=== PATIENT | female | born 1965 | race Caucasian/White ===

== ENCOUNTER 2016-09-16 00:28 | Inpatient (IN) | payer OTHER ==
[~2016-09-16] VITALS: Ht 167.6 cm; Wt 78.0 kg
[~2016-09-16 00:28] MED LIST: GEOD80CA PO; LEXA20TA PO; LINA290C PO; TOPA100T8 PO; XANA1TAB6 PO
[2016-09-16] MEDS ORDERED: LORazepam 2 MG/ML VIAL IM PRN (02:15)
[2016-09-16] MEDS ORDERED: BENZTROPINE MESYLATE 1 MG TAB PO PRN (02:15)
[2016-09-16] MEDS ORDERED: BENZTROPINE MESYLATE 2 MG/2 ML VIAL IM PRN (02:15)
[2016-09-16] MEDS ORDERED: diphenhydrAMINE HCL 50 MG/ML VIAL - HS PRN IM (02:15)
[2016-09-16] MEDS: ACETAMINOPHEN 325 MG TAB PO PRN ×2 (02:28→11:31)
[2016-09-16] MEDS: LORazepam 1 MG TAB PO PRN ×2 (02:28→09:41)
[2016-09-16 03:23] VITALS: BP 115/72; PULSE 72; RESP 16; TEMP 98.4; O2SAT 100
[2016-09-16] MEDS: diphenhydrAMINE HCL 50 MG CAP - HS PRN PO (05:25)
[2016-09-16 05:56] VITALS: BP_SYST 119; BP_SYST 122; BP_SYST 123; BP_DIAS 54; BP_DIAS 73; BP_DIAS 77; PULSE 101; PULSE 70; PULSE 76; RESP 16; TEMP 97.8; TEMP 98.2; TEMP 99.1; O2SAT 95; O2SAT 97; O2SAT 98
[2016-09-16] MEDS: NICOTINE 21 MG/24 HR PATCH T-DERMAL SCH (09:00)
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
[2016-09-16] MEDS: PANTOPRAZOLE SOD 40 MG DELAYED RELEASE TAB PO SCH (17:26)
[2016-09-16] MEDS: ALPRAZolam 0.5 MG TAB PO SCH (17:26)
[2016-09-16 19:28] VITALS: BP 124/81; PULSE 86; RESP 17; TEMP 98.8
[2016-09-16] MEDS: TOPIRAMATE 25 MG TAB PO SCH (20:43)
[2016-09-17] MEDS: ALPRAZolam 0.5 MG TAB PO SCH ×4 (00:02→20:50)
[2016-09-17] MEDS: SUMAtriptan SUCCINATE 50 MG TAB PO PRN ×2 (05:01→07:28)
[2016-09-17 05:57] VITALS: BP 107/94; PULSE 81; RESP 17; TEMP 97.6; O2SAT 94
[2016-09-17] MEDS: ALUMINUM/MAGNESIUM/SIMETH 30 ML CUP PO PRN (07:29)
[2016-09-17] MEDS: REMOVE OLD NICOTINE PATCH T-DERMAL SCH (09:00)
[2016-09-17] MEDS: NICOTINE 21 MG/24 HR PATCH T-DERMAL SCH (09:00)
[2016-09-17] MEDS: PANTOPRAZOLE SOD 40 MG DELAYED RELEASE TAB PO SCH (09:13)
[2016-09-17] MEDS: POLYETHYLENE GLYCOL 17 GM PKG PO SCH (09:13)
[2016-09-17] MEDS: TOPIRAMATE 25 MG TAB PO SCH ×2 (09:13→20:50)
[2016-09-17] MEDS: ACETAMINOPHEN 325 MG TAB PO PRN (12:02)
[2016-09-17] MEDS: LORazepam 1 MG TAB PO PRN (12:02)
--- NOTE | 2016-09-17 14:17 | EKG ---
Date Performed: 09/17/2016 Time Performed: 13:30:18 PTAGE: 51 years EKG: Sinus rhythm LOW QRS VOLTAGE IN PRECORDIAL LEADS Nonspecific ST and T wave abnormalities BORDERLINE ECG PREVIOUS TRACING : 12/31/2014 13.30 DOCTOR: Tito Young Interpretating Date/Time 09/17/2016 14:16:46
--- NOTE | 2016-09-17 14:48 | PD.CONS ---
Provisional Diagnosis Admission Date Sep 16, 2016 at 01:30 [place] I. Bipolar affective disorder hypomanic state f 31.0 History of Present Illness Service Psychiatry Consult Requested By Attending psychiatrist Reason for Consult Second opinion Marley act Primary Care Physician Unknown HPI Patient is a 51-year-old white female admitted to Dr. simmons service under the Marley act. Dr. umana Hand p draft that was transcribed was reviewed and agreed with. Patient seen by me with nurse in her room continues markedly pressured speech with poor insight somewhat tangential showing no insight into the Marley act process Dr. simmons has signed first opinion petition supporting Marley act. I agree patient meets criteria for involuntary psychiatric hospitalization under Marley act thus I will cosign second opinion petition supporting Marley act Past Family Social History Coded Allergies: No Known Allergies (Unverified , 01/02/15) Reported Medications Linaclotide (Linzess)290 Mcg [id number] Mcg PO DAILY 12/31/14 Escitalopram Oxalate (Lexapro)20 Mg Tab20 Mg PO DAILY 12/31/14 Alprazolam (Xanax 1 mg)Alprazolam 1 mg Tab1 Tab PO TID 12/31/14 Topiramate (Topamax)100 Mg [id number] Mg PO BID 12/31/14 Ziprasidone Hydrochloride (Geodon)80 Mg [id number] Mg PO HS 12/31/14 Current Medications Medications (Trade) Dose Ordered Sig/Tien Route Start Time Stop Time Status Last Admin (Ativan) 1 mg Q6H PRN PO 09/16/16 02:15 09/17/16 12:02 (Ativan Inj) 1 mg Q6H PRN IM 09/16/16 02:15 09/16/16 13:20 (Cogentin) 1 mg Q12H PRN PO 09/16/16 02:15 (Cogentin Inj) 1 mg Q12H PRN IM 09/16/16 02:15 (Benadryl) 50 mg HS PRN PO 09/16/16 02:15 09/16/16 05:25 (Benadryl Inj) 50 mg HS PRN IM 09/16/16 02:15 (Tylenol) 650 mg Q4H PRN PO 09/16/16 02:15 09/17/16 12:02 (Milk Of Magnesia Liq) 30 ml DAILY PRN PO 09/16/16 02:15 (Mag-Al Plus Susp Liq) 30 ml Q6H PRN PO 09/16/16 02:15 09/17/16 07:29 (Habitrol 21 Mg Patch.24 Hr) 1 patch DAILY T-DERMAL 09/16/16 09:00 Miscellaneous Information 1 DAILY T-DERMAL 09/17/16 09:00 (Topamax) 25 mg Q12HR PO 09/16/16 21:00 09/17/16 09:13 (Restoril) 30 mg HS PRN PO 09/16/16 14:00 (Protonix) 40 mg DAILY PO 09/16/16 17:00 09/17/16 09:13 (Miralax) 17 gm DAILY PO 09/17/16 09:00 09/17/16 09:13 (Imitrex) 50 mg DAILY PRN PO 09/16/16 17:15 09/17/16 07:28 (Xanax) 0.5 mg Q6H PO 09/17/16 08:00 09/17/16 13:55 Physical Exam Vital Signs Vital Signs Date Time Temp Pulse Resp B/P Pulse Ox O2 Delivery O2 Flow Rate FiO2 09/17/16 05:57 97.6 81 17 107/94 94 Mental Status Examination Alert somewhat disheveled white female long brown hair sitting in room nurse present throughout session she is calm to somewhat irritable showing little insight into the Marley act process in though I explained to her multiple times especially the 72 hour criteria. Appearance Somewhat disheveled Speech: Pressured, Rapid Orientation: x3 Memory: Unremarkable Thought Process: Linear, Tangential Thought Content: Unremarkable Hallucination Type: None Attention and Concentration: Other (poor) Suicidal Ideation: Yes (overdosed on Geodon) Previous Suicide Attempts: No Homicidal Ideation: No Previous Homicide Attempts: No Insight: Poor Judgement: Poor Affect: Other (slight increase range and intensity) Mood: Irritable, Other (intense) Motor Activity: Normal gait Assessment & Plan Problem List: (1) Bipolar disorder, most recent episode hypomanic ICD Code: F31.0 Assessment & Plan Estimated LOS: days at this time patient does meet Marley criteria I will cosign second opinion petition supporting Marley act Discharge Planning To be determined Alphonse Sharma MD Sep 17, 2016 14:48
[2016-09-17 18:44] VITALS: BP 129/82; PULSE 96; RESP 16; TEMP 98.2; O2SAT 95
[2016-09-18] MEDS: ALPRAZolam 0.5 MG TAB PO SCH ×4 (02:00→21:48)
[2016-09-18 05:48] VITALS: BP 125/72; PULSE 73; RESP 16; TEMP 97.9
[2016-09-18] MEDS: NICOTINE 21 MG/24 HR PATCH T-DERMAL SCH (09:00)
[2016-09-18] MEDS: REMOVE OLD NICOTINE PATCH T-DERMAL SCH (09:00)
[2016-09-18] MEDS: TOPIRAMATE 25 MG TAB PO SCH ×2 (09:39→21:48)
[2016-09-18] MEDS: PANTOPRAZOLE SOD 40 MG DELAYED RELEASE TAB PO SCH (09:39)
[2016-09-18] MEDS: POLYETHYLENE GLYCOL 17 GM PKG PO SCH (09:41)
[2016-09-18 19:32] VITALS: BP 122/96; PULSE 91; RESP 16; TEMP 97.9; O2SAT 98
[2016-09-18] MEDS: ZIPRASIDONE HCL 20 MG CAP PO SCH (21:48)
[2016-09-19] MEDS: ALPRAZolam 0.5 MG TAB PO SCH ×4 (02:00→20:58)
[2016-09-19 05:36] VITALS: BP 105/77; PULSE 83; RESP 16; TEMP 97.6
[2016-09-19] MEDS: REMOVE OLD NICOTINE PATCH T-DERMAL SCH (09:00)
[2016-09-19] MEDS: NICOTINE 21 MG/24 HR PATCH T-DERMAL SCH (09:00)
[2016-09-19] MEDS: POLYETHYLENE GLYCOL 17 GM PKG PO SCH (09:30)
[2016-09-19] MEDS: TOPIRAMATE 25 MG TAB PO SCH ×2 (09:30→20:58)
[2016-09-19] MEDS: PANTOPRAZOLE SOD 40 MG DELAYED RELEASE TAB PO SCH (09:30)
[2016-09-19] MEDS: PADIMATE (CHAPSTICK) 4.5 GM TUBE TOP PRN ×2 (16:19→18:12)
[2016-09-19] MEDS: ACETAMINOPHEN 325 MG TAB PO PRN (16:25)
[2016-09-19 19:30] VITALS: BP 105/76; PULSE 83; RESP 18; TEMP 97.6; O2SAT 98
[2016-09-19] MEDS: ZIPRASIDONE HCL 20 MG CAP PO SCH (20:58)
[2016-09-19] MEDS: diphenhydrAMINE HCL 50 MG CAP - HS PRN PO (20:58)
[2016-09-19] MEDS: TEMAZEPAM 15 MG CAP PO PRN (21:04)
[2016-09-19] MEDS: SUMAtriptan SUCCINATE 50 MG TAB PO PRN (21:04)
[2016-09-20] MEDS: ALPRAZolam 0.5 MG TAB PO SCH ×2 (02:00→08:34)
[2016-09-20 06:18] VITALS: BP 104/70; PULSE 76; RESP 16; TEMP 97.8
[2016-09-20] MEDS: PANTOPRAZOLE SOD 40 MG DELAYED RELEASE TAB PO SCH (08:34)
[2016-09-20] MEDS: TOPIRAMATE 25 MG TAB PO SCH ×2 (08:35→20:58)
[2016-09-20] MEDS: buPROPion HCL 150 MG SUSTAINED RELEASE TAB PO SCH (08:35)
[2016-09-20] MEDS: POLYETHYLENE GLYCOL 17 GM PKG PO SCH (08:35)
[2016-09-20] MEDS: REMOVE OLD NICOTINE PATCH T-DERMAL SCH (08:36)
[2016-09-20] MEDS: NICOTINE 21 MG/24 HR PATCH T-DERMAL SCH (08:36)
[2016-09-20] MEDS: PADIMATE (CHAPSTICK) 4.5 GM TUBE TOP PRN (13:06)
[2016-09-20] MEDS: ALPRAZolam 1 MG TAB PO SCH ×2 (13:06→17:53)
[2016-09-20 19:21] VITALS: BP 108/78; PULSE 86; RESP 17; TEMP 98; O2SAT 100
[2016-09-20] MEDS: LORazepam 1 MG TAB PO PRN (20:57)
[2016-09-20] MEDS: ACETAMINOPHEN 325 MG TAB PO PRN (20:58)
[2016-09-20] MEDS: ZIPRASIDONE HCL 40 MG CAP PO SCH (20:58)
[2016-09-20] MEDS: TEMAZEPAM 15 MG CAP PO PRN (21:46)
[2016-09-20] MEDS: ALUMINUM/MAGNESIUM/SIMETH 30 ML CUP PO PRN (21:46)
[2016-09-20] MEDS: diphenhydrAMINE HCL 50 MG CAP - HS PRN PO (21:46)
[2016-09-21 06:45] VITALS: BP 98/69; PULSE 67; RESP 16; TEMP 98
[2016-09-21] MEDS: NICOTINE 21 MG/24 HR PATCH T-DERMAL SCH (09:00)
[2016-09-21] MEDS: REMOVE OLD NICOTINE PATCH T-DERMAL SCH (09:00)
[2016-09-21] MEDS: buPROPion HCL 150 MG SUSTAINED RELEASE TAB PO SCH (09:28)
[2016-09-21] MEDS: PANTOPRAZOLE SOD 40 MG DELAYED RELEASE TAB PO SCH (09:28)
[2016-09-21] MEDS: POLYETHYLENE GLYCOL 17 GM PKG PO SCH (09:28)
[2016-09-21] MEDS: TOPIRAMATE 25 MG TAB PO SCH ×2 (09:29→20:53)
[2016-09-21] MEDS: ALPRAZolam 1 MG TAB PO SCH ×3 (09:29→17:46)
[2016-09-21] MEDS: ACETAMINOPHEN 325 MG TAB PO PRN ×2 (09:31→20:52)
[2016-09-21] MEDS: LORazepam 1 MG TAB PO PRN (15:34)
[2016-09-21 19:32] VITALS: BP 111/70; PULSE 84; RESP 16; TEMP 98.2; O2SAT 100
[2016-09-21] MEDS: TEMAZEPAM 15 MG CAP PO PRN (20:52)
[2016-09-21] MEDS: diphenhydrAMINE HCL 50 MG CAP - HS PRN PO (20:52)
[2016-09-21] MEDS: ZIPRASIDONE HCL 40 MG CAP PO SCH (20:52)
[2016-09-21] MEDS: ALUMINUM/MAGNESIUM/SIMETH 30 ML CUP PO PRN (20:55)
[2016-09-22] MEDS: LORazepam 1 MG TAB PO PRN (05:54)
[2016-09-22] MEDS: MAGNESIUM HYDROXIDE SUSP 30 ML CUP PO PRN (05:55)
[2016-09-22] MEDS: ACETAMINOPHEN 325 MG TAB PO PRN ×2 (05:55→21:30)
[2016-09-22 06:09] VITALS: BP 121/80; PULSE 90; RESP 18; TEMP 98; O2SAT 99
[2016-09-22] MEDS: TOPIRAMATE 25 MG TAB PO SCH ×2 (08:41→20:04)
[2016-09-22] MEDS: ALPRAZolam 1 MG TAB PO SCH ×3 (08:41→17:16)
[2016-09-22] MEDS: buPROPion HCL 150 MG SUSTAINED RELEASE TAB PO SCH (08:41)
[2016-09-22] MEDS: PANTOPRAZOLE SOD 40 MG DELAYED RELEASE TAB PO SCH (08:41)
[2016-09-22] MEDS: POLYETHYLENE GLYCOL 17 GM PKG PO SCH (08:41)
[2016-09-22] MEDS: NICOTINE 21 MG/24 HR PATCH T-DERMAL SCH (08:42)
[2016-09-22] MEDS: REMOVE OLD NICOTINE PATCH T-DERMAL SCH (08:45)
[2016-09-22 18:25] VITALS: BP 123/74; PULSE 82; RESP 18; TEMP 98.6; O2SAT 98
[2016-09-22] MEDS: ZIPRASIDONE HCL 40 MG CAP PO SCH (20:04)
[2016-09-22] MEDS: diphenhydrAMINE HCL 50 MG CAP - HS PRN PO (21:29)
[2016-09-22] MEDS: SUMAtriptan SUCCINATE 50 MG TAB PO PRN (21:30)
[2016-09-22] MEDS: TEMAZEPAM 15 MG CAP PO PRN (21:30)
[2016-09-23 06:10] VITALS: BP 100/72; PULSE 97; RESP 16; TEMP 98.7
[2016-09-23] MEDS: TOPIRAMATE 25 MG TAB PO SCH (09:32)
[2016-09-23] MEDS: buPROPion HCL 150 MG SUSTAINED RELEASE TAB PO SCH (09:32)
[2016-09-23] MEDS: ALPRAZolam 1 MG TAB PO SCH ×2 (09:33→12:17)
[2016-09-23] MEDS: POLYETHYLENE GLYCOL 17 GM PKG PO SCH (09:33)
[2016-09-23] MEDS: PANTOPRAZOLE SOD 40 MG DELAYED RELEASE TAB PO SCH (09:33)
[2016-09-23] MEDS: ACETAMINOPHEN 325 MG TAB PO PRN (12:18)
[2016-09-23] MEDS ORDERED: REST15CA PO (13:23)
[2016-09-23] MEDS ORDERED: TOPA25TA8 PO (13:23)
[2016-09-23] MEDS ORDERED: BENZ1TAB PO (13:23)
[2016-09-23] MEDS ORDERED: ZIPR40 PO (13:23)
[2016-09-23] MEDS ORDERED: BUPR150CR PO (13:23)
[2016-09-23] MEDS ORDERED: ZIPR20 PO (13:23)
[2016-09-23] MEDS ORDERED: PANT40TA3 PO (13:23)
[2016-09-23] MEDS ORDERED: XANA1TAB2 PO (13:23)
[2016-09-23] MEDS ORDERED: POLY17S PO (13:23)
[2016-09-23] MEDS: MAGNESIUM HYDROXIDE SUSP 30 ML CUP PO PRN (13:26)
[2016-09-23] MEDS: LORazepam 1 MG TAB PO PRN (14:04)
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
[2016-09-24] MEDS ORDERED: ZIPRASIDONE HCL 20 MG CAP PO SCH (08:00)
== END 2016-09-23 14:30 | disposition home or self-care (01) | DRG 885 ==
LOC: H260 01:30
PROVIDERS: ADMIT Psychiatry & Neurology Psychiatry; ATTEND Psychiatry & Neurology Psychiatry
DX: F31.0 Bipolar disorder, current episode hypomanic (principal); F40.01 Agoraphobia with panic disorder; F43.10 Post-traumatic stress disorder, unspecified; Z87.11 Personal history of peptic ulcer disease; G43.909 Migraine, unspecified, not intractable, without status migrainosus; Z91.5 Personal history of self-harm; K21.0 Gastro-esophageal reflux disease with esophagitis; K58.1 Irritable bowel syndrome with constipation; Z87.891 Personal history of nicotine dependence
CPT/HCPCS: 93005; J2060; Q0163